=== PATIENT | female | born 1985 | race Caucasian/White ===

== ENCOUNTER 2016-12-24 21:36 | Day surgery (SDCO) | payer OTHER ==
[~2016-12-24] VITALS: Ht 165.1 cm; Wt 117.5 kg
[2016-12-24 20:49] LABS: BILIRUBIN NEGATIVE (NEGATIVE); BLOOD NEGATIVE Ery/uL (NEGATIVE); CLARITY CLEAR (CLEAR); COLOR YELLOW (YELLOW); GLUCOSE (U) NORMAL (NORMAL); KETONE (U) NEGATIVE (NEGATIVE); LEUKOCYTES TRACE Leu/uL (NEGATIVE); NITRITE NEGATIVE (NEGATIVE); PROTEIN TRACE (LOW) mg/dL (NEGATIVE); UROBILINOGEN 0.2 mg/dL (0.2-1.0); pH 6.5 (5.0-9.0)
[2016-12-24 20:55] LABS: BACTERIA 1+; SQUAMOUS EPITHELIAL CELLS 20-50
[2016-12-24 22:32] LABS: HGB 11.8 g/dl (12.5-16.0); MCHC 33.7 g/dL (32.0-36.0); MCV 89.1 fL (78.0-100.0); MPV 9.4 fL (6.0-9.5); RBC 3.93 M/uL (4.20-5.40); RDW 13.4 % (11.5-14.0)
[2016-12-24 22:49] LABS: CREATININE 0.4 mg/dL (0.5-1.0); POTASSIUM 3.7 mmol/L (3.5-5.1)
== END 2016-12-25 17:00 | disposition home or self-care (01) ==
LOC: FOD 21:36 → FOB 21:36 → FOD 12-25 00:21 → FOB 12-25 00:21 → EDSTATUS 12-25 00:26 → FOB 12-25 17:00
PROVIDERS: ADMIT Obstetrics & Gynecology
DX: O71.89 Other specified obstetric trauma (principal); W19.XXXA Unspecified fall, initial encounter; Z3A.28 28 weeks gestation of pregnancy; O99.343 Other mental disorders complicating pregnancy, third trimester; F41.8 Other specified anxiety disorders; O99.283 Endocrine, nutritional and metabolic diseases complicating pregnancy, third trimester; E03.9 Hypothyroidism, unspecified; J06.9 Acute upper respiratory infection, unspecified; O99.511 Diseases of the respiratory system complicating pregnancy, first trimester; Z90.49 Acquired absence of other specified parts of digestive tract; Z83.3 Family history of diabetes mellitus; Z81.1 Family history of alcohol abuse and dependence; Z82.49 Family history of ischemic heart disease and other diseases of the circulatory system; Z98.890 Other specified postprocedural states
CPT/HCPCS: 36415; 73564; 80048; 81001; G0378